=== PATIENT | female | born 1975 | race Caucasian/White ===

== ENCOUNTER 2023-02-26 06:39 | Day surgery (SDC) | payer MEDICAID ==
[~2023-02-26] VITALS: Ht 154.9 cm; Wt 49.6 kg
[2023-02-26] MEDS ORDERED: SIMETHICONE 40 MG/0.6 ML ML ONE (06:51)
[2023-02-26] MEDS ORDERED: MEPERIDINE 100 MG INJ. 100 MG/ML VIAL ONE (06:53)
[2023-02-26] MEDS ORDERED: MIDAZOLAM HCL 5 MG/5 ML VIAL ONE (06:53)
[2023-02-26] MEDS ORDERED: ONDANSETRON HCL 4 MG/2 ML VIAL ONE (09:02)
[2023-02-26 14:08] VITALS: BP_SYST 112; PULSE 60; RESP 17; TEMP 98; O2SAT 98
== END 2023-02-26 10:00 | disposition home or self-care (01) ==
LOC: SMU 06:39 → SDS 06:39
PROVIDERS: ATTEND Internal Medicine Gastroenterology
DX: R10.13 Epigastric pain (principal); K29.50 Unspecified chronic gastritis without bleeding; K29.80 Duodenitis without bleeding; R07.0 Pain in throat; Z88.0 Allergy status to penicillin; Z86.010 Personal history of colon polyps; Z79.899 Other long term (current) drug therapy
CPT/HCPCS: 43239; 87081; 84703; 36415; 88305; 88312; 88313; 99152; G0378; J2250; J2405; J2175

== ENCOUNTER 2023-05-05 11:13 | Emergency (ER) | payer MEDICAID ==
[~2023-05-05] VITALS: Ht 154.9 cm; Wt 50.8 kg
[2023-05-05 11:32] VITALS: BP_SYST 108; PULSE 71; RESP 18; TEMP 98.3; O2SAT 98
[2023-05-05 13:17] LABS: BILIRUBIN,URINE NEGATIVE (NEGATIVE); BLOOD, URINE 3+ (NEGATIVE); CLARITY/URINE Cloudy (CLEAR); COLOR,URINE YELLOW (YELLOW); GLUCOSE,URINE NEGATIVE (NEGATIVE); KETONES,URINE NEGATIVE (NEGATIVE); LEUKOCYTE ESTERASE ,URINE 3+ (NEGATIVE); NITRITE, URINE NEGATIVE (NEGATIVE); PH,URINE 6.5 (5.0-8.0); PROTEIN URINE NEGATIVE (NEGATIVE); UROBILINOGEN,URINE 0.2 (0.2-1.0)
[2023-05-05 13:36] LABS: RBC,URINE 20-50 /HPF (0-3)
[2023-05-05 13:37] LABS: BACTERIA,URINE FEW /HPF (None Seen); WBC,URINE 20-50 /HPF (0-3)
== END 2023-05-05 14:10 | disposition left against medical advice (07) ==
LOC: SED 11:13
DX: R30.9 Painful micturition, unspecified (principal); Z53.21 Procedure and treatment not carried out due to patient leaving prior to being seen by health care provider
CPT/HCPCS: 81000; 87086; 87186-TC; 99281

== ENCOUNTER 2024-06-04 07:07 | Day surgery (SDC) | payer MEDICAID ==
[~2024-06-04] VITALS: Ht 154.9 cm; Wt 52.6 kg
[2024-06-04] MEDS ORDERED: MEPERIDINE 100 MG INJ. 100 MG/ML VIAL ONE (09:40)
[2024-06-04] MEDS ORDERED: MIDAZOLAM HCL 5 MG/5 ML VIAL ONE (09:40)
[2024-06-04 13:01] VITALS: O2SAT 100
[2024-06-04 19:14] VITALS: BP_SYST 105; PULSE 69; RESP 15
== END 2024-06-04 12:34 | disposition home or self-care (01) ==
LOC: SDS 07:07 → SMU 07:08 → SDS 12:34
PROVIDERS: ATTEND Internal Medicine Gastroenterology
DX: K59.00 Constipation, unspecified (principal); K57.30 Diverticulosis of large intestine without perforation or abscess without bleeding; K64.8 Other hemorrhoids; Z98.890 Other specified postprocedural states; Z79.899 Other long term (current) drug therapy; Z88.0 Allergy status to penicillin; Z86.0100 Personal history of colon polyps, unspecified
CPT/HCPCS: 45378; 99153; 99152; G0378; J2250; J2175